=== PATIENT | female | born 1940 | race Caucasian/White ===

== ENCOUNTER → 2020-10-21 08:33 | Outpatient (CLI) | payer MEDICARE, OTHER, SELFPAY ==
--- NOTE | 2020-10-21 08:33 | MRI_ITS ---
FINAL ADDENDUM TO PREVIOUS REPORT Nama: ItalotiD: Ralph Gamboa [id number] Patient Acct Number: [id number] CPTCoda: [id number] DeptCode: ReportType: Electronics Repair Technician: FarzadiiStudy: Date of : Study: Facility: Physician: Date of Service: IMAGING MRI Paco Burgos Jtlw/o 1940 [facility] 10/21/2020 09:19:36 STUDY: MRI LEFT FOREFOOT WITHOUT CONTRAST REASON FOR EXAM: Second opinion. Swelling, aching and numbing sensation of the first toe since . TECHNIQUE: Standardized fat and water weighted pulse sequences were obtained in all 3 orthogonal planes. COMPARISON: None. 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 Normal tibial and fibular sesamoids, with normal sesamoids-first metatarsal articulations. Normal interphalangeal joint of the hallux. Normal proximal and distal phalanges of the great toe. Normal medial and lateral heads of the flexor hallucis brevis tendons. Normal flexor and extensor hallucis longus tendons. Normal second through fifth metatarsophalangeal (MTP) joints. Normal interphalangeal joints of the second through fifth toes. Normal proximal, middle and distal phalanges of the second through fifth toes. There is a small intermetatarsal neuroma of the second webspace (T1 series 4 image 21) measuring 0.3 em in transverse dimension. There is a small intermetatarsal neuroma of the third webspace (T1 series 4 image 20) measuring 0.4 em in transverse dimension. Normal flexor and extensor tendons of the second through fifth toes. Normal metatarsals. Normal tarsometatarsal articulations and Lisfranc ligament. Normal intrinsic muscles of the forefoot. There is a pressure lesion at the plantar aspect of the first metatarsophalangeal joint (T1 sagittal images 22-25). There is a pressure lesion at the plantar aspect of the fifth metatarsophalangeal joint (T1 sagittal images 4, 5). 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 Pressure lesions at the plantar aspect of the first and filth metatarsophalangeal joints. No demonstrated sesamoiditis or hallux valgus deformity. Electronically Signed: Bud An MD at 13:14 EDT [id number], Service support , These documents contain legally protected and confidential health information intended only for the use of the individual or entity named above. If you are not the intended recipient, you are hereby notified that any disclosure, copying, distribution, or other use of these documents is strictly prohibited. If you have received this information in error, please notify the sender immediately and arrange for the return or destruction of these documents.
--- NOTE | 2020-10-21 08:44 | MRI_ITS ---
STUDY: MRI LEFT MIDFOOT REASON FOR EXAM: Female, 79 years old. SESAMOIDITIS, CAPSULITIS, LEFT 1ST METATARSAL JOINT, BUNION? TECHNIQUE: Standardized fat and water weighted pulse sequences were obtained in all 3 orthogonal planes. COMPARISON: None. FINDINGS: The study is markedly limited by technique. Only sagittal STIR images were obtained. All other planes were obtained without fat saturation. Particularly short axis TII fat saturated images were not obtained. There is bone marrow edema on the plantar aspect of the first metatarsal head. The sesamoids are probably of normal bone marrow signal intensity. Plantar plates cannot be adequately evaluated due to limitations of the study. The possibility of Chen''s neuroma cannot be excluded. The tendons are probably intact. Muscle signal is unremarkable. MRI/Lower Ext/No Jt/w/o IMPRESSION: Markedly limited study by technique. Some essential sequences were not obtained. Bone marrow edema on the plantar aspect of the first metatarsal head. Grossly unremarkable sesamoids. Plantar plates cannot be evaluated Electronically Signed: Stuart Tapia MD at 1:50 EDT Tel , Service support ,
== END ==
PROVIDERS: PCP Family Medicine; Referring Provider Podiatrist; Visit Provider Podiatrist
DX: M25.872 Other specified joint disorders, left ankle and foot (principal)
CPT/HCPCS: 73718